=== PATIENT | female | born 1955 | race Caucasian/White ===

== ENCOUNTER 2018-09-23 05:40 | Inpatient (IN) | payer BC ==
--- NOTE | 2018-09-11 09:25 | HP ---
AMENDED REPORT NOW INCLUDES COSIGNER DESIGNATION HISTORY AND PHYSICAL: DATE OF ADMISSION: DATE OF OFFICE VISIT: 09/10/18 DATE OF SURGERY: 09/23/18 SURGEON: Hyacinth Galindo MD * (DICTATED BY ANDRE CAMP) PROCEDURE: Left total knee arthroplasty. CHIEF COMPLAINT: Left knee pain. HISTORY OF PRESENT ILLNESS: Mr. Lr is a 63-year-old female who complains of left knee pain secondary to endstage osteoarthritis. She has failed conservative treatment and elected to proceed with a left total knee arthroplasty. PAST MEDICAL HISTORY: Denies. PAST SURGICAL HISTORY: . CURRENT MEDICATIONS: None. ALLERGIES: None. FAMILY HISTORY: Breast cancer. SOCIAL HISTORY: She is a 63-year-old female. She lives with her . She does not smoke or use drugs. She uses occasional alcohol. REVIEW OF SYSTEMS: A complete 14-point review of systems was reviewed with the patient, it was all negative or noncontributory. She denies history of DVT, PE , hepatitis, HIV, or anesthesia problems. PHYSICAL EXAMINATION GENERAL: She is well developed, well nourished, in no acute distress. VITAL SIGNS: She stands 5 feet 2 inches tall, weighs 136 pounds. Her blood pressure is 150/68 and heart rate is 80. HEENT: Normocephalic, atraumatic. NECK: Supple. No palpable lymph nodes. PULMONARY: The lungs are clear to auscultation bilaterally. CARDIO: Regular rate and rhythm. Strong S1 and S2. ABDOMEN: Soft, nontender, and nondistended. NEUROLOGICAL: She is alert and oriented x3. MUSCULOSKELETAL: Left lower extremity, the skin is intact. There are no open wounds or abrasions. She has a mild to moderate effusion. She has some tenderness along the medial joint line. Range of motion is 10 to 120 degrees of flexion with patellofemoral crepitus. She has 2+ dorsalis pedis pulse, intact sensation, and her lower extremity muscle group strengths are intact at 5 /5. ASSESSMENT AND PLAN: Ms. Lr is a 63-year-old female with end-stage osteoarthritis of the left knee. She has failed conservative treatment and elected to proceed with a left total knee arthroplasty. The surgery is scheduled for 09/23/[address] Galindo discussed the risks and benefits of the surgery at today's visit and all of her questions were answered. She will follow up with Dr. Galindo 2 weeks after the surgery. ANDRE CAMP [id number]/[facility] #: [id number] MTDNirav
[~2018-09-23 05:40] MED LIST: Buffered Lidocaine 0.9% SYRIN* 5 ML/SYR SYRINGE INTRADERM ONE; Tranexamic Acid 1,000 MG in NS 0.9% 50 ML* (outpatient use) IV SCH
--- OUTSIDE RECORDS SUMMARY | 2018-09-23 05:45 | XMS REPORT ---
:1955 External Reference #:[id number] Author Organization [employer] Address [address] [facility] [place] [address] Phone [phone] Care Team Providers Name Role Phone Tea Biggs MD Primary Care Physician Unavailable Payers Type Date Identification Numbers Payment Provider Subscriber Commercial Effective: Policy Number: [id number] [facility] [employer] 2018 PayID: [id number] [address] [place] [address] Problems Date Description Provider Status Onset: 05/23/2018 Localized, primary osteoarthritis Hyacinth Galindo M.D. Active Family History Date Family Member(s) Problem(s) Comments General No Current Problems Social History Type Date Description Comments Lives With Spouse Occupation [employer] ETOH Use Occasionally consumes alcohol Smoking Patient has never smoked Exercise Type/Frequency Exercises regularly Allergies, Adverse Reactions, Alerts Date Description Reaction Status Severity Comments 05/23/2018 NKDA active Medications Medication Date Status Form Strength Qnty SIG Indications Ordering Provider No Active 09/10/20 Active Unknown Medications 18 No Active 05/23/20 Hx Unknown Medications 18 - 05/23/20 18 Meloxicam 05/23/20 Hx Tablets 15mg 30tabs 1 by M17.12 Hyacinth 18 - mouth Beni Galindo 09/09/20 every 18 day Medications Administered in Office Medication Date Status Form Strength Qnty SIG Indications Ordering Provider Depomedrol Administered Injection Hyacinth 40MG Alda Galindo M.D. Vital Signs Date Vital Result Comment 09/10/2018 Height 62.5 inches 5'2.50" Weight 136.00 lb Heart Rate 80 /min BP Systolic 150 mmHg BP Diastolic 68 mmHg BMI (Body Mass Index) 24.5 kg/m2 06/11/2018 Height 62.5 inches 5'2.50" Weight 135.00 lb Heart Rate 77 /min Respiratory Rate 16 /min Pain Level 2 BMI (Body Mass Index) 24.3 kg/m2 05/23/2018 Height 62.5 inches 5'2.50" Weight 133.00 lb Heart Rate 72 /min BP Systolic 118 mmHg BP Diastolic 68 mmHg BMI (Body Mass Index) 23.9 kg/m2 Results Description No Information Procedures Date CPT Code Description Status 06/09/2018 77764 Colonoscopy Flexible Diagnostic Completed 06/09/2018 Colonoscopy Completed 05/23/2018 48008 Inject/Drain Joint/Bursa Major W/O US Completed Encounters Type Date Location Provider CPT E/M Dx Office Visit 06/11/2018 [facility] Hyac[facility] Galindo M.D. 97673 M25.562 8:00a Of [facility] M25.462 M17.12 Office Visit 05/23/2018 11:00a [facility] Hy[facility] Galindo M.D. 66602 M25.562 C.[facility].ACarline M25.462 M17.12 Plan of Care Future Appointment(s):10/06/2018 1:45 pm - Hyacinth Galindo M.D. at [facility]09/23/2018 7:30 am - MICA Raymond at [facility]09/23/2018 7:30 am - ANDRE Bailey at [facility]09/23/2018 7:30 am - Hyacinth Galindo M.D. at [facility]09/10/2018 - Hyacinth Galindo M.D.M25.562 Pain in left kneeFollow up:Follow up: 2 weeks after sjhbbyqQ02.462 Effusion, left kneeM17.12 Unilateral primary osteoarthritis, left knee
[2018-09-23] MEDS ORDERED: Famotidine IV* 10 MG/ML 2 ML (20 mg) IV ONE (06:00)
[2018-09-23] MEDS ORDERED: Dexamethasone IV* 4 MG/ML 1 ML (4 MG) IV SLOW PU ONE (06:00)
[2018-09-23] MEDS ORDERED: Morphine PCA ADULT* 5 MG/ML 30 ML ONE (06:09)
[2018-09-23] MEDS ORDERED: Buffered Lidocaine 0.9% SYRIN* 5 ML/SYR SYRINGE ONE (06:12)
[2018-09-23] MEDS ORDERED: Famotidine IV* 10 MG/ML 2 ML (20 mg) ONE (06:12)
[2018-09-23] MEDS ORDERED: Dexamethasone IV* 4 MG/ML 1 ML (4 MG) ONE (06:12)
[2018-09-23] MEDS ORDERED: ceFAZolin 2 GM PREMIX in ORs 2 GM/50 ML BAG IVPB ONE (06:12)
[2018-09-23] MEDS ORDERED: Midazolam* 1 MG/ML 2 ML VIAL (2 MG) ONE (06:53)
[2018-09-23] MEDS ORDERED: fentaNYL* 50 MCG/ML 2 ML VIAL (100 MCG VIAL) ONE (06:53)
[2018-09-23] MEDS ORDERED: Bupivacaine 0.5% SDV PF* 30ML VIAL ONE (06:57)
[2018-09-23] MEDS ORDERED: Lidocaine 1%* 5 ML VIAL ONE (07:22)
[2018-09-23] MEDS ORDERED: ROPIVACAINE 5 MG/ML 30 ML BTL (0.5%) ONE (07:22)
[2018-09-23] MEDS ORDERED: Tranexamic Acid 1,000 MG/10 ML SDV IV ONE (07:46)
[2018-09-23] MEDS ORDERED: Lidocaine 2% PF * 5 ML VIAL ONE (07:59)
[2018-09-23] MEDS ORDERED: Propofol* 10 MG/ML 20 ML BTL ONE ×3 (08:00→09:13)
[2018-09-23] MEDS ORDERED: Bupivacaine-MPF SPINAL* 7.5 MG/ML - 2ML AMP ONE (08:00)
[2018-09-23] MEDS ORDERED: Acetaminophen IV 1GM/100ML * 1,000 MG/100 ML VIAL IVPB ONE (08:26)
[2018-09-23] MEDS ORDERED: Naloxone* 0.4 MG/ML 1 ML VIAL IV PRN (08:26)
[2018-09-23] MEDS ORDERED: diPHENhydraMINE IV* 50 MG/ML 1 ml VIAL (BENADRYL) IV PRN ×2 (08:26→10:08)
[2018-09-23] MEDS ORDERED: fentaNYL* 50 MCG/ML 2 ML VIAL (100 MCG VIAL) IV PRN (08:26)
[2018-09-23] MEDS ORDERED: oxyCODONE TAB* 5 MG TAB PO PRN (08:26)
[2018-09-23] MEDS ORDERED: Morphine VIAL* 4 MG/ML VIAL (1 ml vial) IV PRN ×2 (08:26→10:08)
[2018-09-23] MEDS ORDERED: Ketorolac INJ* 30 MG/ML 1 ML VIAL IV PRN (08:26)
[2018-09-23] MEDS ORDERED: Ondansetron INJ* 2 MG/ML VIAL IV PRN (08:26)
[2018-09-23] MEDS ORDERED: Bisacodyl SUPP* 10 MG SUPP PR PRN (10:08)
[2018-09-23] MEDS ORDERED: Ondansetron TAB* 4 MG PO PRN (10:08)
[2018-09-23] MEDS ORDERED: Magnesium Hydroxide LIQ* 30 ML UDC PO PRN (10:08)
[2018-09-23] MEDS ORDERED: Polyethylene Glycol 3350* 17 GM PACKET PO PRN (10:08)
[2018-09-23] MEDS ORDERED: oxyCODONE/Acetamin 5/325 MG* TAB PO PRN ×2 (10:08)
[2018-09-23] MEDS ORDERED: Cyclobenzaprine TAB* 10 MG PO PRN (10:08)
[2018-09-23] MEDS ORDERED: Ondansetron ODT TAB* 4 MG PO PRN (10:08)
[2018-09-23] MEDS ORDERED: Ondansetron INJ* 2 MG/ML VIAL ONE (11:00)
[2018-09-23] MEDS: traMADol TAB* 50 MG PO PRN ×2 (13:17→19:33)
[2018-09-23] MEDS: ceFAZolin 1 GM in Dextrose (*) 1 GM/50 ML BAG IVPB SCH ×2 (16:36→23:39)
--- NOTE | 2018-09-23 16:38 | PN ---
Progress Note - Progress Note Date of Service: 09/23/18 Note: Patient seen OOB in chair s/p LTK this am, alert and oriented, no current complaints of left knee pain Dressings dry L knee calf NT 2+ pedal pulse LLE +Df left ankle
[2018-09-23] MEDS ORDERED: Warfarin TAB(*) 6 MG PO ONE (17:00)
[2018-09-23] MEDS: Docusate CAP* 100 MG PO SCH (21:45)
[2018-09-23] MEDS: Acetaminophen TAB* 325 MG PO SCH (21:45)
[2018-09-23] MEDS: Magnesium Hydroxide LIQ* 30 ML UDC PO SCH (21:45)
[2018-09-24] MEDS: oxyCODONE TAB* 5 MG TAB PO PRN ×2 (00:56→11:32)
[2018-09-24] MEDS: Acetaminophen TAB* 325 MG PO SCH ×3 (05:37→20:39)
[2018-09-24] MEDS: traMADol TAB* 50 MG PO PRN ×2 (05:37→14:35)
[2018-09-24 05:47] LABS: Hematocrit 32 % (35-47); Hemoglobin 11.2 g/dl (12.0-16.0); Mean Platelet Volume 7.5 fL (7.4-10.4); Platelet Count 226 10^3/ul (150-450)
[2018-09-24 05:51] LABS: INR 0.98 (0.77-1.02)
[2018-09-24 06:03] LABS: EGFR Non-African American 82.3 (>60)
[2018-09-24] MEDS: ceFAZolin 1 GM in Dextrose (*) 1 GM/50 ML BAG IVPB SCH (08:22)
[2018-09-24] MEDS: Docusate CAP* 100 MG PO SCH ×2 (08:23→20:39)
[2018-09-24] MEDS: Magnesium Hydroxide LIQ* 30 ML UDC PO SCH ×2 (08:28→20:40)
--- NOTE | 2018-09-24 10:48 | PN ---
Progress Note - Progress Note Date of Service: 09/24/18 SOAP: Subjective: [] Patient was seen and examined at bedside. She feels quite well with well controlled left knee pain. Denies CP, SOB, dizziness, nausea. Objective: []General: Well appearing, NAD LLE: Left knee dressing CDI, cryo cuff in use. Thigh is soft, DF/PF intact, sensation intact distally, DP2+ Calves supple and nontender without erythema, edema or palpable cords Assessment: [] POD 1 sp left total knee arthroplasty Plan: []WBAT PT/OT DC tomorrow morning. 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 Vital Signs Temp 97.8 F 09/24/18 07:36 Pulse 68 09/24/18 07:36 Resp 18 09/24/18 10:45 BP 119/54 09/24/18 07:36 Pulse Ox 100 09/24/18 08:00 Intake & Output 09/23/18 09/24/18 09/24/18 18:59 06:59 18:59 Intake Total 1800 1630 440 Output Total 900 1200 100 Balance 900 430 340 Intake: IV Fluids 1800 980 LR 1800 980 IVPB 50 ABX - CEFAZOLIN 50 Oral 600 440 Output: Urine 450 100 Padilla 750 750 Estimated Blood Loss 150 Laboratory Last Values Hgb 11.2 g/dl (12.0-16.0) L 09/24/18 05:11 Hct 32 % (35-47) L 09/24/18 05:11 Plt Count 226 10^3/ul (150-450) 09/24/18 05:11 MPV 7.5 fL (7.4-10.4) 09/24/18 05:11 INR (Anticoag Therapy) 0.98 (0.77-1.02) 09/24/18 05:11 Sodium 139 mmol/L (135-145) 09/24/18 05:11 Potassium 4.0 mmol/L (3.5-5.0) 09/24/18 05:11 Chloride 106 mmol/L (101-111) 09/24/18 05:11 Carbon Dioxide 29 mmol/L (22-32) 09/24/18 05:11 Anion Gap 4 mmol/L (2-11) 09/24/18 05:11 BUN 16 mg/dL (6-24) 09/24/18 05:11 Creatinine 0.72 mg/dL (0.51-0.95) 09/24/18 05:11 Est GFR ( Amer) 99.6 (>60) 09/24/18 05:11 Est GFR (Non-Af Amer) 82.3 (>60) 09/24/18 05:11 BUN/Creatinine Ratio 22.2 (8-20) H 09/24/18 05:11 Glucose 104 mg/dL (70-100) H 09/24/18 05:11 Calcium 8.5 mg/dL (8.6-10.3) L 09/24/18 05:11
[2018-09-24] MEDS: Enoxaparin(*) 30 MG/0.3 ML SYR SUBCUT SCH (11:30)
[2018-09-24] MEDS: Scopolamine 1.5 mg* PATCH ONE ×2 (14:05→14:34)
[2018-09-24] MEDS ORDERED: Warfarin TAB(*) 4 MG PO ONE (17:00)
[2018-09-24] MEDS ORDERED: PROCHLORPERAZINE INJ 5 MG/ML 2 ML VIAL IV PRN (20:03)
--- NOTE | 2018-09-24 20:05 | OP ---
DATE OF OPERATION: 09/23/18 - ROOM #334 DATE OF : 59 SURGEON: Hyacinth Galindo MD SHIFT MANAGER: ANDRE Farmer. Ms. Ibarra did help throughout the procedure with preparation of the leg, wound retraction, manipulation of the knee, and wound closure. ANESTHESIOLOGIST: Dr. Leone ANESTHESIA: Spinal. PRE-OP DIAGNOSIS: Severe end-stage degenerative osteoarthritis of the left knee joint. POST-OP DIAGNOSIS: Severe end-stage degenerative osteoarthritis of the left knee joint. OPERATIVE PROCEDURE: Left total knee arthroplasty. BRIEF HISTORY/INDICATIONS: Ms. Lr is a 63-year-old female with years of increasingly severe left knee pain. She failed conservative treatment with antiinflammatories, pain medication, intraarticular injections, and physical therapy. Due to continued pain and decreased quality of life, she elected to undergo left total knee arthroplasty. Informed consent was obtained from the patient. She understood the risks of surgery included but were not limited to, bleeding, infection, damage to nearby structures, continued pain, need for further surgery, intraoperative fracture, nerve palsy, hardware failure or loosening, knee stiffness, loss of motion, stroke, heart attack, blood clot, and . She wished to proceed. Radiographs showed [id number] arthritis. TOURNIQUET TIME: 45 minutes. COMPLICATIONS: None. ESTIMATED BLOOD LOSS: 200 cc. HARDWARE USED: This is cemented Mccrary and Nephew total knee arthroplasty hardware. Two packages of Simplex bone cement. For the femur, a left size 5 Narrow Oxinium Legion posterior stabilized femoral component. For the tibia, a size 3 left Carmella II tibial baseplate. For the insert, a 9-mm posterior stabilized articular insert size 3-4 and for the patella, a 32-mm 3-peg all- poly patella with 7.5 thickness. INTRAOPERATIVE FINDINGS: Intraoperatively, the patient was noted to have severe end-stage arthritis with complete loss of cartilage in all 3 compartments. She had extensive osteophyte formation. Significant osteopenia was noted. DESCRIPTION OF PROCEDURE: Ms. Lr was identified in the preanesthesia unit. Her left lower extremity was marked as the correct operative side. Informed consent was signed and placed in the chart. The patient was taken to the operating room and placed under spinal anesthesia. A Padilla catheter was placed. Tourniquet was placed on the left thigh. Left lower extremity was prepped and draped in the usual sterile fashion. Preop time-out was made to correctly identify the patient's side and site. Appropriate perioperative antibiotics were given within 1 hour of incision. Tourniquet was inflated and total tourniquet time for this procedure was 45 minutes. A midline incision was made with a #10 blade and carried down to the extensor mechanism. New #10 blade was used to make a standard medial parapatellar arthrotomy. Patella was subluxed laterally. Electrocautery was used to subperiosteally elevate soft tissue off the superomedial tibia to the mid sagittal plane. The knee was flexed up. The anterior horn of the lateral meniscus and ACL were sharply released. A drill was used to enter the distal femur. Intramedullary distal femoral cutting guide was pinned on the distal femur. Oscillating saw was used to make the distal femoral cut. Next, the external rotation guide was pinned on the distal femur. The distal femur was sized to a size 5. Size 5 multi-cutting jig was pinned on the distal femur. Oscillating saw was used to make the appropriate four chamfer cuts. PCL was completely released with electrocautery and the tibia was subluxed anteriorly. Extramedullary tibial cutting guide was pinned on the proximal tibia. Oscillating saw was used to make the proximal tibial cut perpendicular to the mechanical axis of the tibia. The bone was carefully removed. The knee was brought out into full extension. The spacer block had good fit. Medial and lateral ligaments were well balanced. Flexion and extension gaps were well balanced. The knee was flexed up. A lamina cushion spring assembler was placed both medially and laterally. Any remaining meniscus was carefully removed using electrocautery. Curved osteotome was used to remove any posterior osteophytes. Tibial tray and drop molina were placed. This once again confirmed a satisfactory tibial cut. A size 5 Narrow left femoral trial was impacted on to the distal femur. This had excellent fit. The box for the posterior stabilized implant was prepared using a reamer and box cut osteotome. Size 3 tibial tray trial with a 9-mm insert trial was placed and the knee was taken through a range of motion. The knee had full extension to 130 degrees of flexion. There was satisfactory patellofemoral tracking. Next, the patella was everted. 7 mm of patellar bone and cartilage was carefully removed using an oscillating saw. Patella was sized to a size 32. Three peg holes were drilled to a size 32 guide. A 32 trial patella with 7.5 thickness was placed. The knee was taken through a range of motion. There was satisfactory patellofemoral tracking. All trials were removed. Tibia was subluxed anteriorly and sized to a size 3. Proximal tibia was prepared using a size 3 keel punch. All bony cut surfaces were copiously irrigated with sterile saline and dried. Final implants were cemented into place starting with the tibia, followed by the femur, and lastly the patella. A 9-mm insert trial was placed while the knee was brought out into full extension. Tourniquet was turned down at 45 minutes. The knee was copiously irrigated with sterile saline. Electrocautery was used to obtain meticulous hemostasis. Once the cement had fully cured, the insert trial was removed. Any excess cement was carefully removed from around the hardware and capsule. Final insert chosen was a 9-mm posterior stabilized articular insert size 3-4. This was locked into position on the tibial tray. The stability of the insert was checked and rechecked and noted to be stable. The knee was once again copiously irrigated with sterile saline. The extensor mechanism was closed using interrupted #1 Vicryls. The rest of the incision was closed in a layered fashion using 0 and 2-0 Vicryls. The skin was closed using running 3-0 nylon suture. Sterile Xeroform, 4x4s, and Webril were used to cover the incision. Sonny wrap and cold pack were placed over this. The patient's anesthesia was reversed without difficulty. She was taken to the PACU in stable condition. Intended weightbearing will be weightbearing as tolerated. Intended DVT prophylaxis will be Coumadin with a Lovenox bridge. [id number]/[facility] #: [id number] SYDNEY
[2018-09-24] MEDS ORDERED: HYDROcodone/ACETAMIN 5-325 MG* 1 TAB PO PRN (20:32)
[2018-09-24] MEDS: HYDROcodone/ACETAMIN 5-325 MG* 1 TAB PO PRN (20:36)
[2018-09-25] MEDS: HYDROcodone/ACETAMIN 5-325 MG* 1 TAB PO PRN ×3 (00:52→09:51)
[2018-09-25 05:28] LABS: Hematocrit 31 % (35-47); Hemoglobin 10.6 g/dl (12.0-16.0); Mean Platelet Volume 7.2 fL (7.4-10.4); Platelet Count 237 10^3/ul (150-450)
[2018-09-25 05:32] LABS: INR 1.1 (0.77-1.02)
[2018-09-25] MEDS: Acetaminophen TAB* 325 MG PO SCH (05:48)
[2018-09-25] MEDS: Magnesium Hydroxide LIQ* 30 ML UDC PO SCH (08:20)
[2018-09-25] MEDS: Docusate CAP* 100 MG PO SCH (08:21)
[2018-09-25] MEDS: Enoxaparin(*) 30 MG/0.3 ML SYR SUBCUT SCH (11:35)
[2018-09-25 11:56] VITALS: BP 121/52
--- NOTE | 2018-09-25 14:44 | PN ---
Progress Note - Progress Note Date of Service: 09/25/18 SOAP: Subjective: []Patient seen and examined at bedside. She feels well and desires DC to home. Denies CP, SOB, dizziness, nausea. Pain is well controlled. Goals met with PT Objective: []General: Well appearing, NAD LLE: Left knee dressing changed, incision CDI, cryo cuff in use. Thigh is soft, DF/PF intact, sensation intact distally, DP2+ Calves supple and nontender without erythema, edema or palpable cords Assessment: [] POD 2 sp left total knee arthroplasty Plan: []WBAT PT/OT Has not reached a therapeutic INR and will DC home today, will change to eliquis 2.5 mg po BID x 30 days post op DC home today Vital Signs Temp 98.1 F 09/25/18 11:55 Pulse 77 09/25/18 11:55 Resp 14 09/25/18 11:55 BP 121/52 09/25/18 11:55 Pulse Ox 99 09/25/18 11:55 Intake & Output 09/24/18 09/25/18 09/25/18 18:59 06:59 18:59 Intake Total 560 800 120 Output Total 975 1300 450 Balance -415 -500 -330 Intake: Oral 560 800 120 Output: Urine 975 1300 450 Other: # Bowel Movements 0 Laboratory Last Values Hgb 10.6 g/dl (12.0-16.0) L 09/25/18 05:14 Hct 31 % (35-47) L 09/25/18 05:14 Plt Count 237 10^3/ul (150-450) 09/25/18 05:14 MPV 7.2 fL (7.4-10.4) L 09/25/18 05:14 INR (Anticoag Therapy) 1.10 (0.77-1.02) H 09/25/18 05:13 Sodium 139 mmol/L (135-145) 09/24/18 05:11 Potassium 4.0 mmol/L (3.5-5.0) 09/24/18 05:11 Chloride 106 mmol/L (101-111) 09/24/18 05:11 Carbon Dioxide 29 mmol/L (22-32) 09/24/18 05:11 Anion Gap 4 mmol/L (2-11) 09/24/18 05:11 BUN 16 mg/dL (6-24) 09/24/18 05:11 Creatinine 0.72 mg/dL (0.51-0.95) 09/24/18 05:11 Est GFR ( Amer) 99.6 (>60) 09/24/18 05:11 Est GFR (Non-Af Amer) 82.3 (>60) 09/24/18 05:11 BUN/Creatinine Ratio 22.2 (8-20) H 09/24/18 05:11 Glucose 104 mg/dL (70-100) H 09/24/18 05:11 Calcium 8.5 mg/dL (8.6-10.3) L 09/24/18 05:11
--- NOTE | 2018-09-26 11:25 | DS ---
DISCHARGE SUMMARY: DATE OF ADMISSION: 09/23/18 DATE OF DISCHARGE: 09/25/18 SURGEON: Dr. Hyacinth Galindo.* (DICTATED BY ANDRE MODI) DOUBLE NEEDLE OPERATOR LOCKSTITCH: ANDRE Farmer. PRE-OP DIAGNOSIS: Severe endstage degenerative osteoarthritis of the left knee joint. OPERATIVE PROCEDURE: Left total knee arthroplasty. HISTORY: Ms. Lr is a 63-year-old female with years of increasingly severe left knee pain. She failed conservative management and elected to undergo a left total knee arthroplasty. HOSPITAL COURSE: The patient was admitted to [facility] on . She underwent a left total knee arthroplasty without complication. On postop day 1, she was well appearing, in no acute distress. Left knee dressing clean, dry, and intact. Dorsiflexion and plantar flexion intact. Sensation intact distally. On postop day 2, the patient is well-appearing, no acute distress. The left knee dressing changed. Incision clean, dry, and intact. Exam otherwise unchanged from yesterday. The patient has not reached a therapeutic INR. Today, her INR was measured at 1.10. She will therefore be changed to Eliquis 2.5 mg p.o. b.i.d. for 30 days postop. She will get a Lovenox injection prior to leaving. She will no longer be taking any Coumadin. DISCHARGE MEDICATIONS: 1. Docusate 100 mg p.o. b.i.d. 2. Acetaminophen 975 mg p.o. q.8 hours p.r.n. 3. Eliquis 2.5 mg p.o. b.i.d. for 30 days. 4. Hydrocodone/acetaminophen 1 to 2 tabs every 4 to 6 hours as needed for pain , max daily dose of 10. DISCHARGE PLAN: The patient will be weightbearing as tolerated. Visiting home nurse will do wound checks. She does not need INR draws. DVT prophylaxis is Eliquis 2.5 mg by mouth every 12 hours for 30 days. Start this medication on the morning of 09/26/18 as she receives Lovenox, another type of blood thinner on 09/25/18 prior to leaving the hospital. Pain control with Busby 5/325 mg 1 to 2 tabs every 4 to 6 hours as needed for pain, max of 10 tabs per day. The patient will be discharged to home. She will follow up with Dr. Galindo in 10 to 14 days. ANDRE MODI [id number]/[facility] #: [id number] MTDD
== END 2018-09-25 12:25 | disposition home health service (06) | DRG 302 ==
LOC: AA 05:40 → SSU 10:08
PROVIDERS: ADMIT Orthopaedic Surgery Adult Reconstructive Orthopaedic Surgery; ATTEND Orthopaedic Surgery Adult Reconstructive Orthopaedic Surgery
PROC: 0SRD069 Replacement of Left Knee Joint with Oxidized Zirconium on Polyethylene Synthetic Substitute, Cemented, Open Approach (ICD-10-PCS; principal; 2018-09-23 07:30)
DX: M17.12 Unilateral primary osteoarthritis, left knee (principal); M25.462 Effusion, left knee; G89.29 Other chronic pain; M25.762 Osteophyte, left knee; M85.862 Other specified disorders of bone density and structure, left lower leg; Z98.51 Tubal ligation status; Z82.49 Family history of ischemic heart disease and other diseases of the circulatory system; Z83.6 Family history of other diseases of the respiratory system; Z80.3 Family history of malignant neoplasm of breast; Z72.89 Other problems related to lifestyle
CPT/HCPCS: 36415; 80048; 85014; 85018; 85049; 85610; A9270-GY; C1776; J0690; J0780; J1100; J1650; J2250; J2270; J2405; J2704; J2795; J3010

== ENCOUNTER 2024-11-03 06:17 | Observation (INO) ==
[~2024-11-03 06:17] MED LIST changes: -Buffered Lidocaine 0.9% SYRIN* 5 ML/SYR SYRINGE INTRADERM ONE; +NS 0.45% 1000 ml BAG 1,000 ML IV SCH; +Naloxone 0.4 mg VIAL 0.4 mg/ml 1 ml VIAL IV PRN; +Ondansetron 4 mg VIAL 2 MG/ML 2 ml VIAL IV PRN; -Tranexamic Acid 1,000 MG in NS 0.9% 50 ML* (outpatient use) IV SCH; +fentaNYL 100 mcg/2 ml 50 MCG/ML VIAL IV PRN
[2024-11-03] MEDS ORDERED: ceFAZolin 2 GM PREMIX 2 GM/50 ML BAG ONE (06:55)
[2024-11-03] MEDS ORDERED: Tranexamic Acid 1 GM/100ML BAG 2,000 MG/200 ML BAG IV ONE (06:55)
[2024-11-03 07:06] LABS: Rapid COVID-19 Molecular Undetected (Undetected)
[2024-11-03] MEDS ORDERED: Scopolamine 1 mg/72hr PATCH ONE (07:22)
[2024-11-03] MEDS: Scopolamine 1 mg/72hr PATCH TRANSDERM ONE (07:24)
[2024-11-03] MEDS ORDERED: ROPIVACAINE 5 MG/ML 30 ML BTL (0.5%) ONE ×2 (07:37→09:06)
[2024-11-03] MEDS ORDERED: fentaNYL 100 mcg/2 ml 50 MCG/ML VIAL ONE (07:37)
[2024-11-03] MEDS ORDERED: Midazolam 5 mg/5 ml VIAL 1 mg/ml 5 ml VIAL (5 mg) ONE (07:37)
[2024-11-03] MEDS ORDERED: Phenylephrine IV 10 MG/ML 1 ml VIAL ONE (08:16)
[2024-11-03] MEDS ORDERED: Lidocaine 2% PF 5 ML VIAL ONE (08:16)
[2024-11-03] MEDS ORDERED: Dexamethasone IV 4 MG/ML VIAL 1 ml VIAL ONE (10:03)
[2024-11-03] MEDS ORDERED: Ondansetron 4 mg VIAL 2 MG/ML 2 ml VIAL ONE (10:03)
[2024-11-03] MEDS ORDERED: Ondansetron 4 mg VIAL 2 MG/ML 2 ml VIAL IV PRN (12:13)
[2024-11-03] MEDS ORDERED: Calcium Carb (TUMS) 500 mg CHEW TAB PO PRN (12:13)
[2024-11-03] MEDS ORDERED: Magnesium Hydroxide LIQ 30 ML UDC PO PRN (12:13)
[2024-11-03] MEDS ORDERED: Lactulose 30 ml UDC PO PRN (12:13)
[2024-11-03] MEDS ORDERED: Morphine 2 MG/ML SYRINGE IV PRN (12:13)
[2024-11-03] MEDS ORDERED: Ondansetron ODT 4 mg TAB 4 MG TAB PO PRN (12:13)
[2024-11-03] MEDS: Lactated Ringers 1000 ml BAG 1,000 ML IV SCH ×2 (13:29→14:01)
[2024-11-03] MEDS: Buffered Lidocaine 1% SYRIN 1 ml INTRADERM ONE (14:01)
[2024-11-03] MEDS: Acetaminophen IV 1 GM/100ML 1,000 MG/100 ML BAG IV ONE (14:01)
[2024-11-03 17:47] VITALS: BP 144/79
[2024-11-03] MEDS: ceFAZolin 2 GM PREMIX 2 GM/50 ML BAG IV SCH (17:50)
[2024-11-03] MEDS ORDERED: Magnesium Hydroxide LIQ 30 ML UDC PO SCH (21:00)
[2024-11-04] MEDS ORDERED: Vitamin THERAPEUTIC TAB PO SCH (09:00)
== END 2024-11-03 18:50 | disposition home or self-care (01) ==
LOC: SSU 06:17 → OR 06:17
PROVIDERS: ADMIT Orthopaedic Surgery Adult Reconstructive Orthopaedic Surgery; ATTEND Orthopaedic Surgery Adult Reconstructive Orthopaedic Surgery